=== PATIENT | female | born 1995 | race Caucasian/White ===

== ENCOUNTER 2018-08-02 15:53 | Emergency (ER) | payer OTHER ==
[2018-08-02] MEDS ORDERED: Ondansetron ODT TAB* 4 MG PO ONE (16:38)
[2018-08-02] MEDS ORDERED: Diazepam TAB(*) 5 MG PO ONE (17:33)
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
[2018-08-02 18:20] VITALS: BP 142/98
== END 2018-08-02 18:20 | disposition home or self-care (01) ==
LOC: ED 15:53
DX: S09.90XA Unspecified injury of head, initial encounter (principal); V49.9XXA Car occupant (driver) (passenger) injured in unspecified traffic accident, initial encounter; Y92.410 Unspecified street and highway as the place of occurrence of the external cause; M25.512 Pain in left shoulder; M25.561 Pain in right knee; R11.0 Nausea; Z88.6 Allergy status to analgesic agent; Z88.0 Allergy status to penicillin
CPT/HCPCS: 99282; A9270-GY